=== PATIENT | male | born 1970 | race Caucasian/White ===

== ENCOUNTER 2020-03-05 12:59 | Emergency (ER) | payer OTHER ==
[~2020-03-05] VITALS: Ht 180.3 cm; Wt 91.2 kg
[2020-03-05 13:13] VITALS: Ht 180.3 cm; Wt 91.2 kg
[2020-03-05 14:37] LABS: BASOPHIL % 0.3 % (0-2); PLATELET COUNT 153 x10^3mcL (130-400); RED CELL DISTRIBUTION WIDTH 13.7 % (11.5-14.5)
[2020-03-05 14:42] LABS: POTASSIUM SERUM 3.5 mmol/L (3.5-5.1)
[2020-03-05 14:48] LABS: CALCIUM 8.6 mg/dL (8.5-10.1); CARBON DIOXIDE 29.4 mmol/L (21-32); CHLORIDE SERUM 101 mmol/L (98-107); CREATININE SERUM 1.3 mg/dL (0.7-1.3); GFR1 > 60 mL/min; GLUCOSE SERUM 98 mg/dL (74-106); SODIUM SERUM 139 mmol/L (136-145)
[2020-03-05 14:52] LABS: ALBUMIN 4.4 g/dL (3.4-5.0); ALKALINE PHOSPHATASE 69 U/L (46-116); ALT/SGPT 32 U/L (16-63); AST/SGOT 19 U/L (15-37); BILIRUBIN TOTAL 1.6 mg/dL (0.20-1.00); LIPASE 72 IU/L (73-393); TOTAL PROTEIN, SERUM 7.3 g/dL (6.4-8.2)
[2020-03-05 15:50] VITALS: BP 145/89
[2020-03-05 15:56] LABS: UA SPECIFIC GRAVITY <=1.005 (1.005-1.035); microscopic required? YES; urine erythrocyte 2+ (NEGATIVE)
== END 2020-03-05 15:50 | disposition home or self-care (01) ==
LOC: ED 12:59
PROVIDERS: Emergency Medicine
DX: N20.0 Calculus of kidney (principal); F17.210 Nicotine dependence, cigarettes, uncomplicated
CPT/HCPCS: 99406; J1885; J2405; J3010; J7030